=== PATIENT | female | born 1965 | race Caucasian/White ===

== ENCOUNTER 2016-11-07 15:27 | Inpatient (IN) ==
[2016-11-07] MEDS ORDERED: methylPREDNISolone SOD SUC 125 MG/2 ML VIAL IV STA (16:36)
[2016-11-07] MEDS ORDERED: FUROSEMIDE 100 MG/10 ML VIAL IV STA (16:36)
[2016-11-07] MEDS ORDERED: cefTRIAXone 1,000 MG in SODIUM CHLORIDE 0.9% 100 ML IV STA (16:36)
[2016-11-07] MEDS ORDERED: ONDANSETRON 4 MG/2 ML VIAL IV STA (16:36)
[2016-11-07] MEDS ORDERED: MORPHINE 2 MG/1 ML SYRINGE IV STA (16:36)
[2016-11-07] MEDS ORDERED: SODIUM CHLORIDE 0.9% 500 ML IV STA ×2 (16:36→21:31)
--- NOTE | 2016-11-07 16:50 | Emergency Department Note ---
Amaya Talley Mantricia, am scribing for, and in the presence of, Maxx Saravia MD 16:50. Manjit Talley Charles R, MD, personally performed the services described in this documentation, ascribed by Jason Conde in my presence, and it is both accurate and complete [id number] . Arrival - Arrival Chief Complaint: Shortness of Breath Stated Complaint: SOB/[facility] ED Nursing Triage Note: cough and congestion with diarrhea onset x 2 days - pt states that she has a nonproductive cough Mode of Arrival: Ambulatory Limitations: No Limitations Source: Patient Time Seen by Provider: 11/07/16 16:17 - History of Present Illness HPI Narrative: Pt is a 51 y/o white female arriving to ED by EMS with c/o pain while breathing that onset 2 days ago. Pt states that her back hurts when taking deep breaths and while coughing a lot. She also c/o diarrhea and states that she has a BM 2- 3 times a day. Pt states that she cannot breathe comfortably while laying down straight; she has to sit up to breathe normally. Pt admits to smoking. She reports no other complaints to ED. Onset (ago): day(s) Consistency: constant Date of Last Menstrual Period: timur Allergies/Adverse Reactions: Allergies Allergy/AdvReac Type Severity Reaction Status Date / Time aspirin Allergy HIVES Verified 11/07/16 15:32 Home Medications: Home Medications Medication Instructions Recorded Confirmed Type Levothyroxine Tab [Synthroid Tab] 100 mcg PO DAILY@0700 11/25/15 11/07/16 History Review of System - Review of System 12 point system: reviewed and no additional remarkable complaints except as stated - Review of System Constitutional: Absent: chills, diaphoresis, fever Eyes: Absent: discharge, pain Head/Ears/Nose/Throat: Absent: earache, epistaxis Respiratory: Absent: cough, respiratory distress, wheezing Cardiovascular: Present: other (pain while breathing). Absent: chest pain, palpitations Gastrointestinal: Absent: abdominal pain, nausea, vomiting, constipation Genitourinary female: Absent: abnormal menses, dysuria Musculoskeletal: Present: back pain. Absent: arm pain, leg pain, neck pain Skin: Absent: rash, lesions Neurological: Absent: headache Psychiatric: Absent: anxiety, depression Medical,Surgical,& Family Hx - Medical History Cardio: No history of: Hypertension Endocrine: History of: Thyroid Disorder No history of: Diabetes Mellitus (IDDM), Diabetes Mellitus (NIDDM) Respiratory: No history of: Asthma, COPD Renal: No history of: Renal Problems Genitourinary: No history of: Problems Gastrointestinal: No history of: Liver Problems, GI Problems - Social History Smoking Status: Current every day smoker Frequency of Alcohol Use: None Type of Drug Use: None Exam Vital Signs: Vital Signs Temperature 98.9 F 11/07/16 17:15 Pulse Rate 87 11/07/16 18:25 Respiratory Rate 20 11/07/16 18:25 Blood Pressure 167/107 11/07/16 17:15 O2 Sat by Pulse Oximetry 97 11/07/16 18:25 - General General appearance: alert, in no apparent distress, other (shaking disorder) - Head Head exam: Present: atraumatic, normocephalic, normal inspection - Eye Eye exam: Present: normal appearance, PERRL, EOMI - ENT ENT exam: Present: normal exam, normal oropharynx, mucous membranes moist, TM's normal bilaterally, normal external ear exam - Neck Neck exam: Present: normal inspection, full ROM, trachea midline. Absent: tenderness - Chest Chest inspection: Present: normal inspection, symmetric chest wall rise. Absent : tenderness - Respiratory Respiratory exam: Present: rales, rhonchi, wheezes (expiratory) - Cardiovascular Cardiovascular exam: Present: regular rate, normal rhythm, normal heart sounds - Abdominal Exam Abdominal exam: Present: soft, normal bowel sounds. Absent: distention, tenderness, guarding, rebound - Extremities Exam Extremities exam: Present: normal inspection, full ROM, tenderness, normal capillary refill, other (+1 LE edema) - Back Exam Back exam: Present: normal inspection, full ROM, tenderness - Neurological Exam Neurological exam: Present: alert, oriented X3, CN II-XII intact, normal gait, reflexes normal - Psychiatric Psychiatric exam: Present: normal affect, normal mood - Skin Skin exam: Present: warm, dry, intact, normal color Course - Reevaluation(s) Reevaluation #1: Patient reevaluated her oxygenation goes down take the oxygen off down to upper 80s. Patient's blood pressure today 154. Patient states she still short of breath patient has chest x-ray that shows evidence of interstitial inflammation and possibly sarcoidosis on x-ray Time: 20:29 - Consultations Consultation #1: Hospitalist will admit patient Time: 20:30 Results - Labs CBC & BMP: 11/07/16 17:09 11/07/16 17:09 Lab Results: I have reviewed the patients labs Labs: Laboratory Tests 11/07/16 17:20 ABG pH 7.455 H ABG HCO3 27.5 H ABG Total CO2 28.7 H ABG Base Excess 3.4 H - Diagnostic Findings Procedure: Chest x-ray: report reviewed by me (1. Chronic interstitial disease including sacroid could be considered. The pattern of interstitial stranding in the perihilar region suggests little progression from comparison. No acute superimposed process is clearly demonstrated. ) Critical Care Time Critical Care Time: Yes Total Critical Care Time: 60 Disposition Clinical Impression: Acute exacerbation of chronic obstructive airways disease, Tobacco abuse, Hypoxia Case discussed with: patient, patient's family Disposition: Still a Patient Condition: Guarded Time of Disposition: 20:30
[2016-11-07] MEDS ORDERED: ALBUTEROL 2.5 MG/3 ML NEB RESP TX SCH (17:00)
[2016-11-07 17:15] LABS: Basophils % 0.4 % (0.0-0.8); Eosinophils # 0.2 10*3/uL (0.0-0.87); Eosinophils % 1.8 % (0.00-10.9); Hemoglobin 13.6 GM/DL (12.0-16.0); Immature Granulocytes % 0.5 %; Immature Granulocytes Absolute 0.04 #; Lymphocytes # 2.1 10*3/uL (1.4-4.0); Lymphocytes % 24.9 % (21.3-54.2); Mean Corpuscular Hemoglobin 31 PG (27-34); Mean Corpuscular Volume 91.3 FL (87-102); Monocytes # 0.6 10*3/uL (0.11-0.8); Monocytes % 6.7 % (1.7-12.7); Neutrophils # 5.6 10*3/uL (1.4-7.4); Neutrophils % 65.7 % (38.7-73.9); Platelet Count 236 T/CUMM (130-400); Red Blood Count 4.38 MC/CUMM (3.8-5.5); Red Cell Distribution Width 13.7 % (9.3-17.3); White Blood Count 8.5 T/CUMM (4-12)
--- NOTE | 2016-11-07 17:24 | XRay Report ---
XR chest 2V Indication: Shortness of breath. Comparison: Chest x-ray 10/28/2012 Technique: PA and lateral chest x-ray was performed. Findings: Bilateral perihilar interstitial stranding is nonspecific in appearance and likely in part is chronic. Scattered punctate densities within the lung parenchyma compatible granulomas also remain present with little suggestive change. Partially calcified right hilar and left hilar lymph nodes are noted. The heart size is normal. Bones and soft tissues demonstrate no evidence of acute pathology. Impression: 1. Chronic interstitial disease including sarcoid could be considered. The pattern of interstitial stranding in the perihilar region suggests little progression from comparison. No acute superimposed process is clearly demonstrated. 11/07/2016 5:20 PM PROCEDURE INTERPRETED AT [facility] DEPARTMENT OF RADIOLOGY Final Report Signed by: Dr. Bradley Dougherty
[2016-11-07] MEDS ORDERED: cefTRIAXone 1,000 MG VIAL ONE (17:32)
[2016-11-07] MEDS ORDERED: methylPREDNISolone SOD SUC 125 MG/2 ML VIAL ONE (17:32)
[2016-11-07] MEDS ORDERED: MORPHINE 2 MG/1 ML SYRINGE ONE (17:32)
[2016-11-07] MEDS ORDERED: ONDANSETRON 4 MG/2 ML VIAL ONE (17:32)
[2016-11-07] MEDS ORDERED: FUROSEMIDE 40 MG/4 ML VIAL ONE (17:32)
[2016-11-07 17:34] LABS: ABG Base Excess 3.4 MMOL/L (-2.5-2.5); ABG HCO3 27.5 MMOL/L (20-26); ABG PH 7.455 (7.35-7.45); ABG PO2 88.1 MM HG (80-95); ABG TCO2 28.7 MMOL/L (23-27)
[2016-11-07 17:35] LABS: D-Dimer <= 0.5 MG/L FEU; INR 1.1; PT Patient Result 11.4 SECS
[2016-11-07 17:37] LABS: Alanine Aminotransferase 15 U/L (13-56); Albumin 3.3 G/DL (3.4-5.0); Alkaline Phosphatase 90 U/L (45-117); Aspartate Amino Transferase 14 U/L (0-37); Bilirubin,Total < 0.39 MG/DL (0.2-1.0); Blood Urea Nitrogen 13 MG/DL (7-18); Calcium 8.5 MG/DL (8.5-10.1); Glucose 88 MG/DL (74-106); Magnesium 2.1 MG/DL (1.8-2.4); Osmolality,Calculated 281.1 MOS/KG (273-304); Potassium 4.3 MMOL/L (3.5-5.1); Sodium 142 MMOL/L (136-145); Total Protein 6.8 G/DL (6.4-8.3); Troponin I Only 0.028 NG/ML (0.00-0.045)
[2016-11-07] MEDS ORDERED: ONDANSETRON 4 MG/2 ML VIAL IV PRN (21:17)
[2016-11-07] MEDS ORDERED: ALBUTEROL 2.5 MG/3 ML NEB RESP TX PRN (21:31)
--- NOTE | 2016-11-07 21:43 | Hospitalist History & Physical ---
Assessment and Plan (1) History of hypothyroidism Status: Acute Current Visit: Yes (2) Acute exacerbation of chronic obstructive airways disease Status: Acute Current Visit: Yes (3) Hypoxia Status: Acute Current Visit: Yes (4) Tobacco abuse Status: Acute Assessment and plan: Our plan for this patient will be admission to our service. Patient will be on schedule breathing treatments and IV antibiotics. Will do some steroids also. I would like pulmonary to take a look at her and to determine whether she has sarcoid or not. Patient's O2 sats would drop when she was taken off oxygen in the emergency room. We will need to reevaluate patient in the morning and adjust plans appropriate. Current Visit: Yes History of Present Illness Chief complaint: Shortness of breath History of present illness: Ms. Zamorano is a 51 year old female with past medical history significant for hypothyroidism presents to our ER today. She reports that she has not been feeling well. She felt short of breath. She thinks that her symptoms have been going on approximately 1 week. She reports sleeping more. She reports a cough. She reports that she has sputum that is clear and foamy. She came in complaining about some diarrhea but reports it is not too bad. Patient's chest x-ray looks like a chronic illness possibly sarcoid. Patient's O2 sats would drop when she was off the oxygen but she was able to maintain oxygen while on O2. I was consulted for admission Home Medications Medication Instructions Recorded Confirmed Type Levothyroxine Tab [Synthroid Tab] 100 mcg PO DAILY@0700 11/25/15 11/07/16 History Allergies Allergy/AdvReac Type Severity Reaction Status Date / Time aspirin Allergy HIVES Verified 11/07/16 15:32 Medical,Surgical,& Family Hx - Medical History Cardio: No history of: Hypertension Endocrine: History of: Thyroid Disorder No history of: Diabetes Mellitus (IDDM), Diabetes Mellitus (NIDDM) Respiratory: No history of: Asthma, COPD Renal: No history of: Renal Problems Genitourinary: No history of: Problems Gastrointestinal: No history of: Liver Problems, GI Problems - Surgical History Orthopedic Surgeries: Surgical HX of;: Orthopedic Surgery (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) - Family History Family History: Reports;: Family Cancer, Family Diabetes, Family Heart Disease - Social History Smoking Status: Current every day smoker Frequency of Alcohol Use: None Type of Drug Use: None 12 point system: reviewed and no additional remarkable complaints except as stated Exam - Constitutional Vitals: Period Temp Pulse Resp BP Sys/Donaldson Pulse Ox Last 24 Hr 98.9 F-98.9 F 81-115 19-22 167-167/107-107 89-97 - General General appearance: alert, in no apparent distress, other (shaking disorder) - Head Head exam: Present: atraumatic, normocephalic, normal inspection - Eye Eye exam: Present: normal appearance, PERRL, EOMI - ENT ENT exam: Present: normal exam, normal oropharynx, mucous membranes moist, TM's normal bilaterally, normal external ear exam - Neck Neck exam: Present: normal inspection, full ROM, trachea midline. Absent: tenderness - Chest Chest inspection: Present: normal inspection, symmetric chest wall rise. Absent : tenderness - Respiratory Respiratory exam: Present: rales, rhonchi, wheezes (expiratory) per ER physician but have improved when I examined her - Cardiovascular Cardiovascular exam: Present: regular rate, normal rhythm, normal heart sounds - Abdominal Exam Abdominal exam: Present: soft, normal bowel sounds. Absent: distention, tenderness, guarding, rebound - Extremities Exam Extremities exam: Present: normal inspection, full ROM, tenderness, normal capillary refill, other (+1 LE edema) patient has child-size feet - Back Exam Back exam: Present: normal inspection, full ROM, tenderness - Neurological Exam Neurological exam: Present: alert, oriented X3, CN II-XII intact, normal gait, reflexes normal - Psychiatric Psychiatric exam: Present: normal affect, normal mood - Skin Skin exam: Present: warm, dry, intact, normal color Results - Labs CBC & BMP: 11/07/16 17:09 11/07/16 17:09
[2016-11-08] MEDS: ALBUTEROL/IPRATROPIUM 3 ML NEB RESP TX SCH ×4 (00:10→19:25)
[2016-11-08 06:47] LABS: Basophils % 0.1 % (0.0-0.8); Hematocrit 37.9 VOL% (35.7-47.0); Hemoglobin 12.5 GM/DL (12.0-16.0); Immature Granulocytes % 1.8 %; Immature Granulocytes Absolute 0.17 #; Lymphocytes # 0.5 10*3/uL (1.4-4.0); Lymphocytes % 4.9 % (21.3-54.2); Mean Corpuscular Hemoglobin 30 PG (27-34); Mean Platelet Volume 11.6 FL (9.6-12.0); Monocytes # 0.1 10*3/uL (0.11-0.8); Monocytes % 0.6 % (1.7-12.7); Neutrophils # 8.7 10*3/uL (1.4-7.4); Neutrophils % 92.6 % (38.7-73.9); Platelet Count 210 T/CUMM (130-400); Red Blood Count 4.12 MC/CUMM (3.8-5.5); Red Cell Distribution Width 13.8 % (9.3-17.3); White Blood Count 9.4 T/CUMM (4-12)
[2016-11-08 07:24] LABS: Segmented Neutrophils 94 % (50-85)
[2016-11-08 07:25] LABS: Hypochromasia 3+; Microcytosis Slight; Platelet Estimate Normal; Total Cells Counted 100
[2016-11-08 07:28] LABS: Alanine Aminotransferase 13 U/L (13-56); Alkaline Phosphatase 88 U/L (45-117); Aspartate Amino Transferase 11 U/L (0-37); Calcium 8.1 MG/DL (8.5-10.1)
[2016-11-08 07:30] LABS: Blood Urea Nitrogen 20 MG/DL (7-18); Glucose 329 MG/DL (74-106); Osmolality,Calculated 292.5 MOS/KG (273-304); Potassium 3.5 MMOL/L (3.5-5.1); Sodium 139 MMOL/L (136-145)
[2016-11-08 07:31] LABS: Bilirubin,Total < 0.39 MG/DL (0.2-1.0); Total Protein 6.7 G/DL (6.4-8.3)
--- NOTE | 2016-11-08 07:53 | EKG Report ---
Stationary ECG Study [facility] ER Test Date: 11/07/2016 3:39:36 PM Pat Name: DAVID BENNETT Department: Room: 432 Gender: F Mainframe Analyst: : 1965 Requested by: Maxx Reina Order Number: [id number] Reading MD: BRANDO MERCHANT Intervals [place] Rate: 67 P: 58 [place]: 125 QRS: 77 QRSD: 81 T: 65 QT: 400 QTc: 416 Interpretive Statements SINUS RHYTHM Electronically Signed On 11-09-16 22:13:39 CDT by BRANDO MERCHANT [email or web address]
[2016-11-08] MEDS: PANTOPRAZOLE 40 MG TABLET PO SCH (09:02)
[2016-11-08] MEDS: methylPREDNISolone SOD SUC 40 MG/1 ML VIAL IV SCH ×3 (09:16→17:09)
[2016-11-08] MEDS: LEVOTHYROXINE 100 MCG TABLET PO SCH (09:17)
[2016-11-08] MEDS ORDERED: GLUCAGON 1 MG VIAL IM PRN (10:19)
[2016-11-08] MEDS ORDERED: DEXTROSE 50% 25 GM/50 ML VIAL IV PRN (10:19)
[2016-11-08] MEDS ORDERED: AMINOPHYLLINE 250 MG in SODIUM CHLORIDE 0.9% 100 ML IV ONE (10:30)
[2016-11-08 11:09] LABS: Free T4 (Free Thyroxine) 0.95 NG/DL (0.76-1.46); Thyroid Stimulating Hormone 6.55 uIU/ml (0.358-3.74)
--- NOTE | 2016-11-08 11:43 | Physician Query Form ---
CLICK EDIT DOCUMENT TO SELECT QUERY ANSWER --> OK --> SIGN Megha Soto RN Clinical Sequencing Machine Operator W) [phone] (f) [phone] [email or web address] PROVIDERS: Make your selection(s) from the choices in EACH section by typing an "x" and enter comments in the comment section. Please use your independent medical judgment in providing your response. This request does not imply that any particular answer is desired or expected. CLINICAL INDICATORS: (Providers should not edit this section) \\ Based on lab results of creatinine of 0.90 on admission and increased to 1.86 with a GFR of 24. Pt. treated with IV fluids. Clarify which of the following most accurately represents the patient's renal status: ( x) Acute kidney injury (non-traumatic) ( ) Acute renal failure ( ) Acute renal failure with underlying Chronic Kidney Disease (CKD) - please provide stage below ( ) CKD - please provide stage below ( ) Other, please specify: ( ) Clinically unable to determine Chronic Kidney Disease Stages Source: National Kidney Disease Foundation ( ) Stage I (eGFR > or = 90) ( ) Stage II (eGFR 60 - 89) ( x) Stage III (eGFR 30 - 59) ( ) Stage IV (eGFR 15 - 29) ( ) Stage V (eGFR < 15 or dialysis) COMMENTS: PLEASE ALSO DOCUMENT RESPONSE IN PROGRESS NOTES AND/OR DISCHARGE SUMMARY Use of terms such as suspected, likely, or probable (associated with a specific diagnosis that is being evaluated, monitored, or treated as if it exists) are acceptable and can be restated in the discharge summary if not ruled out. MTDD
--- NOTE | 2016-11-08 12:19 | Pulmonology Consult Note ---
History of Present Illness Chief complaint: Abnormal CXR. COPD. Tobacco abuse. History of present illness: Estuardo Stevenson, ANP-BC, GNP-BC, acting as scribe for Dr. Fran Camargo Ms. Zamorano is a 51 year old white female who we've been asked to see in pulmonary consultation for evaluation and treatment. The request for consultation was made by Dr. Andrade. The patient presented to [place] ER on 11/07/16 with complaints of increased shortness of breath. She has a long history of tobacco abuse. She was hypoxic on ABGs. CXR showed possible evidence of sarcoidosis. She was felt to be in an acute exacerbation of COPD and was admitted for further evaluation and care. She was seen today along with her nurse. She is a fair historian. She denies a history of previous pulmonary or cardiac problems. She reports increased shortness of breath and some BRYSON. She denies cardiac angina or palpitations. She denies reflux or dypshagia. There has been no bleeding from any site. No change in bowel or bladder habits. No TIA symptoms or syncope. All other systems were reviewed and were negative. Allergies: ASA Home medications: [facility] medications: See list Past medical history: Hypothyroidism. History of scabies. 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 Social history: She is a current smoker. She denies the use of alcohol. She recently began working at [employer]. CXR. Done 11/07/16. My interpretation. There is calcification in the hilum. The lymph nodes are upper size of normal. There is a small peritracheal lymph node present. There are slightly increased interstitial markings at the bases. There is no appearance of active sarcoidosis. Laboratory: White count is 9,400 with 92.6% segs, 4.9% lymphs, and 0.6% monos; H &H 12.5/37.9 with normal indices and normal RDW; PLT count 210,000; creatinine has increased from 0.90 at admission to 1.86 today, BUN 20, NA+ 139, K+ 3.5, Mg + 2.1; LFTs WNL; Ca+ is low at 8.1 reflecting a low BUN of 3.0, total protein 6.7; globulins 3.7; BNP 17; troponin 0.028; INR 1.0; d-dimer is less than or equal to 0.5 ABGs done 11/07/2016 on an FiO2 of 28% showed a pH of 7.455, PCO2 40.0, PO2 88.1 , bicarb 27.5, and oxygen saturation 97.0%. Home Medications Medication Instructions Recorded Confirmed Type Levothyroxine Tab [Synthroid Tab] 100 mcg PO DAILY@0700 11/25/15 11/07/16 History Allergies Allergy/AdvReac Type Severity Reaction Status Date / Time aspirin Allergy HIVES Verified 11/07/16 15:32 Exam (Pulmonay) H&P - Constitutional Vitals: Period Temp Pulse Resp BP Sys/Donaldson Pulse Ox Last 24 Hr 97.8 F-98.9 F 61-115 18-22 85-167/51-107 89-99 Exam: Psych: [Oriented x 3; a pleasant and cooperative patient; somewhat slow to answer questions but answers appropriately] HEENT: [Pupils, irises, sclera, conjunctiva, and eyelids are normal. The face is symmetrical without rash or masses. Lips, tongue, buccal mucosa, soft and hard palates, and pharynx are WNL with the exception of dry mucous membranes.] Neck: [Symmetrical. Thyroid was not palpated.] Lymphatics: [No submandibular, cervical, or supraclavicular adenopathy] Chest: Symmetrical with large airway wheeze and faint end expiratory wheeze Breasts: [Deferred] CV: [Regular with a short grade 1/6 systolic ejection murmur at the left sternal border that does not radiate] Arterial: [Carotids with a good upstroke. There is no bruit. Upper extremity pulses are palpable. Lower extremity pulses are non-palpable, but I see no evidence of ischemia.] Venous: [Exam of the neck, upper, and lower extremities is normal] Abd: [No appreciable organomegaly, masses, tenderness, or bruit; Bowel sounds are positive 4; The aorta was not palpated] /Rectal: [Deferred] Extremities: [No clubbing, cyanosis, edema, or obvious DVT; there is tenderness with palpation of the bilateral calves] Skin: [No cancerous or infectious lesions of the exposed, examined skin; the perineal area was not examined] M/S: [Age appropriate loss of the normal curvature of the cervical, thoracic, and lumbar spine] Neurological: [Cranial nerves are intact with possibly some mild decreased hearing acuity bilaterally, Long tract motor function appears to be intact; Sensory exam was not done; gait was not tested.] The remainder of the exam was noncontributory. Impression: #1: COPD/asthma #2: Acute exacerbation of COPD #3: Acute renal failure #4: Tobacco abuse #5: Hypoxemia #6: Abnormal chest x-ray. Note, there is no appearance of active sarcoidosis. #7: Hypothyroidism #8: History of scabies #9: Hypocalcemia #10: See past history Plan: #1: Agree with protocol antibiotics and Solu-Medrol #2: Agree with inhalation therapy #3: Start IV Aminophyllin. Will begin with a 250 mg bolus over 4 hours and then run at 15 mg/h. Daily theophylline level starting tomorrow. #4: Start Singulair 10 mg daily. Start Mucinex 600 mg twice daily. #5: Check Doppler venograms to rule out deep venous thrombophlebitis in the setting of calf pain and hypoxemia #6: Check angiotensin-converting enzyme and sed rate. Note, there is no evidence of active sarcoidosis on chest x-ray but will obtain these tests for confirmation. #7: Sliding scale insulin #8: Check hemoglobin A1c #9: Urinalysis #10: Vitamin D level #11: Check TSH and free T4 #12: Sputum for Gram stain, culture and sensitivity #13: See orders We appreciate this consult and will follow along with you. Medical,Surgical,& Family Hx - Medical History Cardio: No history of: Hypertension Endocrine: History of: Thyroid Disorder No history of: Diabetes Mellitus (IDDM), Diabetes Mellitus (NIDDM) Respiratory: No history of: Asthma, COPD Renal: No history of: Renal Problems Genitourinary: No history of: Problems Gastrointestinal: No history of: Liver Problems, GI Problems - Surgical History Abdominal Surgeries: Patient denies: Abdominal Surgery Reproductive Surgeries: Patient denies;: Genitourinary Surgery, Gynecologic Surgery Orthopedic Surgeries: Surgical HX of;: Orthopedic Surgery (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
[2016-11-08] MEDS: INSULIN REGULAR 100 UNIT/ML SUBCUT SCH ×2 (13:09→17:12)
[2016-11-08] MEDS: MONTELUKAST 10 MG TABLET PO SCH (13:09)
--- NOTE | 2016-11-08 14:06 | Ultrasound Report ---
History: Shortness of breath. Hypoxemia. Leg pain Date: 11/08/2016 Study: Bilateral lower extremity color-flow venous Doppler study Comparison exam: No previous similar Color Doppler, wave form analysis, and compression analysis of the deep veins of both lower extremities from the common femoral vein level through the popliteal vein level shows that the veins are readily compressible. There is no abnormal intraluminal material to suggest thrombus. Waveform analysis is unremarkable. Ultrasound images were captured and archived Impression: Normal bilateral lower extremity color flow venous Doppler study. No evidence of acute DVT PROCEDURE INTERPRETED AT [facility] DEPARTMENT OF RADIOLOGY Final Report Signed by: Dr. Elizabeth Cortez
[2016-11-08] MEDS ORDERED: AMINOPHYLLINE 500 MG in SODIUM CHLORIDE 0.9% 480 ML IV SCH (14:30)
--- NOTE | 2016-11-08 16:25 | Hospitalist Progress Note ---
Assessment and Plan (1) Respiratory failure with hypoxia Status: Acute Assessment and plan: Patient is doing better now with a oxygenation. Aggressive respiratory treatments and respiratory toiletry has of been afforded. She also been put on antibiotics though we will try to broaden this coverage with addition of azithromycin 500 mg IV once a day Current Visit: Yes (2) Respiratory distress Status: Acute Assessment and plan: Resolved Current Visit: Yes (3) Lower respiratory infection Status: Acute Assessment and plan: Antibiotic orders above. This is possibly bronchiolitis. Current Visit: Yes (4) Acute exacerbation of chronic obstructive airways disease Status: Acute Assessment and plan: Secondary to rule out history infection. Patient has no aggressive beta agonist ipratropium bromide and systemic steroids. We will follow sputum cultures. Current Visit: Yes Hospitalist: Subjective Interval history: Patient has been seen interviewed and examined chart has been reviewed. She acknowledges getting better with her breathing. This patient came in the hospital respiratory distress acute hypoxic respiratory failure with a pulse oximetry was around 89% Exam - Constitutional Vitals: Period Temp Pulse Resp BP Sys/Donaldson Pulse Ox Last 24 Hr 96.1 F-98.9 F 61-115 18-22 85-167/51-107 90-99 General appearance: normal weight - Head Head exam: Present: normocephalic - Eye Eye exam: Present: EOMI Pupils: Present: IRENE - ENT ENT exam: Present: normal exam - Neck Neck exam: Present: normal inspection - Respiratory Respiratory exam: Present: clear to auscultation bilaterally, other (There is no wheezing at this point mild rales at the bases admixed with some crackles) - Cardiovascular Cardiovascular exam: Present: regular rate and rhythm - GI/Abdominal GI/Abdominal exam: Present: normal bowel sounds, soft - Extremities Exam Extremities exam: Present: other (Tremulous but with normal range of motion) - Back Exam Back exam: Present: normal inspection - Neurological Exam Neurological exam: Present: alert, oriented X3, CN II-XII intact, other ( 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 He has refused neurology evaluation in the past, I am informed.) - Psychiatric Psychiatric exam: Present: normal affect, normal mood - Skin Skin exam: Present: normal color, warm, dry Results - Labs CBC & BMP: 11/08/16 04:00 05/25/17 04:00 Lab Results: I have reviewed the past 24 hour labs
[2016-11-08] MEDS: AZITHROMYCIN INJ 500 MG in SODIUM CHLORIDE 0.9% 250 ML IV SCH (17:52)
[2016-11-08 17:56] LABS: Apearance,Urine CLEAR (Clear); Bilirubin,Urine Negative (Negative); Blood, Urine Negative (Negative); Glucose,Urine (UA) 150 mg/dL (Negative); Hyaline Casts,Urine 1 /LPF (0-3); Ketones,Urine Negative (Negative); Mucus,Urine Occasional /LPF (Occasional); Nitrite,Urine Negative (Negative); Protein,Urine Negative; RBC,Urine 1 /HPF (0-4); Squamous Epithelial Cell,Urine Occasional /HPF (0-10); Urine Color Yellow (Yellow); Urine Specific Gravity 1.012 (1.001-1.035); Urine Urobilinogen < 2.0 EU/DL (0.2-1.0); WBC,Urine 1 /HPF (0-6)
[2016-11-08] MEDS: ACETAMINOPHEN 325 MG TABLET PO PRN (21:59)
[2016-11-09] MEDS: ALBUTEROL/IPRATROPIUM 3 ML NEB RESP TX SCH ×4 (00:40→19:41)
[2016-11-09] MEDS: methylPREDNISolone SOD SUC 40 MG/1 ML VIAL IV SCH ×3 (01:08→17:19)
[2016-11-09] MEDS: INSULIN REGULAR 100 UNIT/ML SUBCUT SCH ×5 (01:12→21:32)
[2016-11-09] MEDS: cefTRIAXone 1,000 MG in SODIUM CHLORIDE 0.9% 100 ML IV SCH ×3 (04:07→20:11)
[2016-11-09] MEDS: LEVOTHYROXINE 100 MCG TABLET PO SCH (06:11)
--- NOTE | 2016-11-09 08:47 | Hospitalist Progress Note ---
Assessment and Plan (1) Respiratory failure with hypoxia Status: Acute Assessment and plan: Patient is doing better now with oxygenation. Aggressive respiratory treatments and respiratory toiletry has of been afforded. She also been put on antibiotics though we will try to broaden this coverage with addition of azithromycin 500 mg IV once a day. Current Visit: Yes (2) Respiratory distress Status: Acute Assessment and plan: Resolved Current Visit: Yes (3) Lower respiratory infection Status: Acute Assessment and plan: Antibiotic orders above. This is possibly bronchiolitis. Current Visit: Yes (4) Acute exacerbation of chronic obstructive airways disease Status: Acute Assessment and plan: Secondary to rule out history infection. Patient has no aggressive beta agonist ipratropium bromide and systemic steroids. We will follow sputum cultures. COPD is not acknowledged by the patient therefore is anuric diagnosis. She will need PFTs. Will await comment from pulmonology Current Visit: Yes Hospitalist: Subjective Interval history: Patient has been seen interviewed and examined and chart has been reviewed. Been progressive improvement in her breathing status. To the hospital With a diagnosis of exacerbation of COPD but she does not acknowledge having had a diagnosis of COPD before. Her attests to these. We do have a pulmonology on the case probably needs to have pulmonary function tests at one point. No history of asthma preceding this admission. She does have a long history of smoking. Was quite hypoxic at admission with pulse oximetry of 89%. Exam - Constitutional Vitals: Period Temp Pulse Resp BP Sys/Donaldson Pulse Ox Last 24 Hr 96.3 F-99.8 F 61-86 16-20 104-128/55-65 90-99 General appearance: normal weight, no acute distress - Head Head exam: Present: normal inspection, normocephalic, atraumatic - Eye Eye exam: Present: EOMI Pupils: Present: IRENE - ENT ENT exam: Present: normal exam - Neck Neck exam: Present: normal inspection - Respiratory Respiratory exam: Present: clear to auscultation bilaterally - Cardiovascular Cardiovascular exam: Present: regular rate and rhythm - GI/Abdominal GI/Abdominal exam: Present: normal bowel sounds, soft - Extremities Exam Extremities exam: Present: full ROM - Neurological Exam Neurological exam: Present: alert, oriented X3, CN II-XII intact - Psychiatric Psychiatric exam: Present: normal affect, normal mood - Skin Skin exam: Present: normal color, warm, dry, other (She has a small lipoma in the right flank) Results - Labs CBC & BMP: 11/08/16 04:00 11/08/16 04:00 Lab Results: I have reviewed the past 24 hour labs (Morning labs to include BMP with magnesium and CBC with differential)
--- NOTE | 2016-11-09 09:44 | Pulmonology Progress Note ---
Pulmonary - PN: Subj Interval history: Estuardo Stevenson, ANP-BC, GNP-BC, acting as scribe for Dr. Fran Camargo Mrs. Zamorano is a 51-year-old white female who we saw in initial pulmonary consultation on 11/08/2016. At that time, our impressions were: #1: COPD/asthma #2: Acute exacerbation of COPD #3: Acute renal failure #4: Tobacco abuse #5: Hypoxemia #6: Abnormal chest x-ray. Note, there is no appearance of active sarcoidosis. #7: Hypothyroidism #8: History of scabies #9: Hypocalcemia #10: See past history 11/09/2016. Yesterday the patient was started on IV Aminophyllin and Singulair. Today she reports that she is able to take a better deeper breath. On chest exam, her large airway wheeze and high-pitched peripheral wheezes have markedly improved. Her consultation secondary to abnormal chest x-ray. There is a question of whether or not this patient had sarcoidosis. There is no evidence of active sarcoid on chest x-ray, certainly. Angiotensin-converting enzyme is pending. Vitamin D is insufficient at 25.8. Theophylline level is 3.6. Sed rate is 37. Hemoglobin A1c is 6.1%. TSH is elevated at 6.550, but free T4 is normal at 0.95. Medications have been reviewed. Start vitamin D 2000 international units daily. Given her improvement since yesterday, we will convert her IV Aminophyllin to oral theophylline. Labs have been reviewed. Yesterday's magnesium was low at 1.6 (hypomagnesemia) and her creatinine had risen from 0.902 to 1.86. We we will reorder a BMP and magnesium for today. Exam (Progress Note) - Constitutional Vitals: Period Temp Pulse Resp BP Sys/Donaldson Pulse Ox Last 24 Hr 96.3 F-99.8 F 61-86 16-20 104-128/55-65 90-99 Exam: Chest... See above Heart no gallop Abdomen is nontender and nondistended; bowel sounds are positive 4 Lower extremities with nothing to suggest acute deep venous thrombophlebitis; note, Doppler venograms done 11/08/2016 showed no evidence of acute DVT Psychiatric presently oriented 3 Neurologic... Unchanged Plan: Start vitamin D 2000 international units daily. Start theophylline 300 mg p.o. twice daily. Aminophyllin can be discontinued when the first dose of oral theophylline is given. Follow-up angiotensin-converting enzyme level when available. BMP and magnesium today. Labs are ordered for tomorrow. See orders. Results - Labs CBC & BMP: 11/08/16 04:00 11/08/16 04:00
[2016-11-09] MEDS: CHOLECALCIFEROL 1,000 UNIT TABLET PO SCH (10:03)
[2016-11-09] MEDS: MONTELUKAST 10 MG TABLET PO SCH (10:04)
[2016-11-09] MEDS: PANTOPRAZOLE 40 MG TABLET PO SCH (10:04)
[2016-11-09 10:12] LABS: Calcium 8.2 MG/DL (8.5-10.1); Magnesium 1.9 MG/DL (1.8-2.4); Osmolality,Calculated 290.7 MOS/KG (273-304)
--- NOTE | 2016-11-09 10:51 | Hospitalist Progress Note ---
Assessment and Plan (1) Respiratory failure with hypoxia Status: Acute Assessment and plan: Patient is doing better now with oxygenation. Aggressive respiratory treatments and respiratory toiletry has of been afforded. She also been put on antibiotics though we will try to broaden this coverage with addition of azithromycin 500 mg IV once a day. Current Visit: Yes (2) Respiratory distress Status: Acute Assessment and plan: Resolved Current Visit: Yes (3) Lower respiratory infection Status: Acute Assessment and plan: Antibiotic orders above. This is possibly bronchiolitis. Current Visit: Yes (4) Acute exacerbation of chronic obstructive airways disease Status: Acute Assessment and plan: Secondary to rule out history infection. Patient has no aggressive beta agonist ipratropium bromide and systemic steroids. We will follow sputum cultures. COPD is not acknowledged by the patient therefore is anuric diagnosis. She will need PFTs. Will await comment from pulmonology Current Visit: Yes Hospitalist: Subjective Interval history: First encounter this patient. Ms. Zamorano is a 51-year-old lady admitted overnight with a history of COPD presented with respiratory distress thought to have bronchitis and pneumonia right lower lobe. She is acknowledging a cough without expectoration. Patient was started on levofloxacin at admission. No respiratory distress at this time Exam - Constitutional Vitals: Period Temp Pulse Resp BP Sys/Donaldson Pulse Ox Last 24 Hr 96.3 F-99.8 F 61-86 16-20 104-129/55-79 90-99 General appearance: normal weight - Head Head exam: Present: normal inspection - Eye Eye exam: Present: EOMI Pupils: Present: IRENE - ENT ENT exam: Present: normal exam, normal oropharynx - Neck Neck exam: Present: normal inspection, other (Supple neck no thyromegaly no JVD) - Respiratory Respiratory exam: Present: clear to auscultation bilaterally, other (I do not acknowledge bronchophony) - Cardiovascular Cardiovascular exam: Present: irregular rhythm, other (Since patient's EKG shows sinus control with PVCs but his variant duration of OK interval suggesting possibility of Wenckebach) - GI/Abdominal GI/Abdominal exam: Present: normal bowel sounds - Extremities Exam Extremities exam: Present: normal inspection - Back Exam Back exam: Present: normal inspection - Neurological Exam Neurological exam: Present: alert, oriented X3, CN II-XII intact Results - Labs CBC & BMP: 11/08/16 04:00 11/09/16 03:36
[2016-11-09] MEDS: THEOPHYLLINE ER 300 MG TABLET PO SCH (17:19)
[2016-11-09] MEDS: AZITHROMYCIN INJ 500 MG in SODIUM CHLORIDE 0.9% 250 ML IV SCH (17:21)
[2016-11-09] MEDS: ACETAMINOPHEN 325 MG TABLET PO PRN (20:11)
[2016-11-10] MEDS: ALBUTEROL/IPRATROPIUM 3 ML NEB RESP TX SCH ×4 (01:02→19:56)
[2016-11-10] MEDS: methylPREDNISolone SOD SUC 40 MG/1 ML VIAL IV SCH ×3 (01:32→15:48)
[2016-11-10 05:05] LABS: Basophils % 0.2 % (0.0-0.8); Hematocrit 34.6 VOL% (35.7-47.0); Hemoglobin 11.4 GM/DL (12.0-16.0); Immature Granulocytes % 1.6 %; Lymphocytes # 0.6 10*3/uL (1.4-4.0); Lymphocytes % 2.4 % (21.3-54.2); Mean Corpuscular HGB Conc 32.9 GM/DL (32-36); Mean Corpuscular Hemoglobin 30 PG (27-34); Mean Corpuscular Volume 92.3 FL (87-102); Monocytes # 0.4 10*3/uL (0.11-0.8); Monocytes % 1.8 % (1.7-12.7); Neutrophils # 22.9 10*3/uL (1.4-7.4); Platelet Count 212 T/CUMM (130-400); Red Blood Count 3.75 MC/CUMM (3.8-5.5); Red Cell Distribution Width 14.3 % (9.3-17.3); White Blood Count 24.3 T/CUMM (4-12)
[2016-11-10 05:31] LABS: Calcium 8.1 MG/DL (8.5-10.1); Osmolality,Calculated 285.1 MOS/KG (273-304)
[2016-11-10 06:06] LABS: Hypochromasia 1+; Lymphocytes 4 % (20-55); Segmented Neutrophils 95 % (50-85); Total Cells Counted 100
[2016-11-10 06:07] LABS: Microcytosis 1+; Ovalocytes Few; Platelet Estimate Normal
[2016-11-10] MEDS: LEVOTHYROXINE 100 MCG TABLET PO SCH (06:20)
[2016-11-10] MEDS: MONTELUKAST 10 MG TABLET PO SCH (08:28)
[2016-11-10] MEDS: CHOLECALCIFEROL 1,000 UNIT TABLET PO SCH (08:28)
[2016-11-10] MEDS: PANTOPRAZOLE 40 MG TABLET PO SCH (08:28)
[2016-11-10] MEDS: THEOPHYLLINE ER 300 MG TABLET PO SCH ×2 (08:28→18:30)
[2016-11-10] MEDS: INSULIN REGULAR 100 UNIT/ML SUBCUT SCH ×4 (08:35→21:08)
--- NOTE | 2016-11-10 10:46 | Pulmonology Progress Note ---
Pulmonary - PN: Subj Interval history: Patient being treated for COPD exacerbation, clinically improving. Still having some cough and exertional dyspnea but feels like she's improving overall Exam (Progress Note) - Constitutional Vitals: Period Temp Pulse Resp BP Sys/Donaldson Pulse Ox Last 24 Hr 97.3 F-99 F 71-94 15-22 108-128/56-80 93-99 General appearance: normal weight, no acute distress - Head Head exam: Present: normal inspection - Eye Eye exam: Present: EOMI - ENT ENT exam: Present: normal exam - Neck Neck exam: Present: normal inspection - Respiratory Respiratory exam: Present: clear to auscultation bilaterally - Cardiovascular Cardiovascular exam: Present: regular rate and rhythm - GI/Abdominal GI/Abdominal exam: Present: normal bowel sounds - Skin Skin exam: Present: other (small lipoma on right abdomen, nontender, mobile) Results - Labs CBC & BMP: 11/10/16 03:54 11/10/16 03:54 Lab Results: I have reviewed the past 24 hour labs Assessment and Plan (1) Acute exacerbation of chronic obstructive airways disease Status: Acute Assessment and plan: Patient clinically improving. Leukocytosis likely from steroids, but would follow to ensure this stabilizes. Continue with current meds. Will continue to follow along Current Visit: Yes
[2016-11-11] MEDS: ALBUTEROL/IPRATROPIUM 3 ML NEB RESP TX SCH ×4 (01:10→19:20)
[2016-11-11 05:20] LABS: Basophils % 0.2 % (0.0-0.8); Hematocrit 35.2 VOL% (35.7-47.0); Hemoglobin 11.6 GM/DL (12.0-16.0); Immature Granulocytes % 2.6 %; Immature Granulocytes Absolute 0.43 #; Lymphocytes % 11.8 % (21.3-54.2); Mean Corpuscular Hemoglobin 30 PG (27-34); Mean Corpuscular Volume 91.7 FL (87-102); Mean Platelet Volume 12.2 FL (9.6-12.0); Monocytes % 6.2 % (1.7-12.7); Neutrophils # 13.3 10*3/uL (1.4-7.4); Neutrophils % 79.2 % (38.7-73.9); Platelet Count 218 T/CUMM (130-400); Red Blood Count 3.84 MC/CUMM (3.8-5.5); Red Cell Distribution Width 14.5 % (9.3-17.3); White Blood Count 16.7 T/CUMM (4-12)
[2016-11-11] MEDS: LEVOTHYROXINE 100 MCG TABLET PO SCH (06:41)
[2016-11-11] MEDS: AZITHROMYCIN INJ 500 MG in SODIUM CHLORIDE 0.9% 250 ML IV SCH (07:25)
[2016-11-11] MEDS: INSULIN REGULAR 100 UNIT/ML SUBCUT SCH ×4 (07:33→20:16)
--- NOTE | 2016-11-11 08:53 | Hospitalist Progress Note ---
Assessment and Plan (1) Acute exacerbation of chronic obstructive airways disease Status: Acute Current Visit: Yes (2) Tobacco abuse Status: Acute Current Visit: Yes (3) Respiratory distress Status: Acute Current Visit: Yes Hospitalist: Subjective Interval history: No acute events overnight. Patient feels better today. Has been walking around the hospital. Changed her prednisone and abx to po. Exam - Constitutional Vitals: Period Temp Pulse Resp BP Sys/Donaldson Pulse Ox Last 24 Hr 96.4 F-99.1 F 58-97 16-20 105-138/55-69 93-99 General appearance: normal weight - Head Head exam: Present: normocephalic, atraumatic - Eye Eye exam: Present: EOMI Pupils: Present: IRENE - ENT ENT exam: Present: normal exam - Respiratory Respiratory exam: Present: wheezes - Cardiovascular Cardiovascular exam: Present: regular rate and rhythm - GI/Abdominal GI/Abdominal exam: Present: normal bowel sounds, soft. Absent: tenderness, rebound - Extremities Exam Extremities exam: Present: normal inspection - Back Exam Back exam: Present: normal inspection - Neurological Exam Neurological exam: Present: alert, oriented X3 - Psychiatric Psychiatric exam: Present: normal affect, normal mood - Skin Skin exam: Present: warm, intact Results - Labs CBC & BMP: 11/11/16 04:24 11/10/16 03:54
[2016-11-11] MEDS: CHOLECALCIFEROL 1,000 UNIT TABLET PO SCH (09:22)
[2016-11-11] MEDS: predniSONE 20 MG TABLET PO SCH (09:22)
[2016-11-11] MEDS: MONTELUKAST 10 MG TABLET PO SCH (09:22)
[2016-11-11] MEDS: THEOPHYLLINE ER 300 MG TABLET PO SCH ×2 (09:22→16:57)
[2016-11-11] MEDS: PANTOPRAZOLE 40 MG TABLET PO SCH (09:22)
[2016-11-11] MEDS: LEVOFLOXACIN 750 MG TABLET PO SCH (09:23)
--- NOTE | 2016-11-11 11:08 | Hospitalist Progress Note ---
Assessment and Plan (1) Acute exacerbation of chronic obstructive airways disease Status: Acute Assessment and plan: levaquin and prednisone duonebs Current Visit: Yes (2) Tobacco abuse Status: Acute Current Visit: Yes (3) Respiratory distress Status: Acute Current Visit: Yes Hospitalist: Subjective Interval history: Patient reports that she feels better. Antibiotics and steroids switched to po. Leukocytosis is improving. Possible discharge tomorrow. Exam - Constitutional Vitals: Period Temp Pulse Resp BP Sys/Donaldson Pulse Ox Last 24 Hr 96.4 F-99.1 F 58-97 16-20 105-138/55-71 93-99 General appearance: normal weight - Head Head exam: Present: normocephalic, atraumatic - Eye Eye exam: Present: EOMI Pupils: Present: IRENE - ENT ENT exam: Present: normal exam - Neck Neck exam: Present: normal inspection - Respiratory Respiratory exam: Present: clear to auscultation bilaterally. Absent: rhonchi, wheezes - Cardiovascular Cardiovascular exam: Present: regular rate and rhythm - GI/Abdominal GI/Abdominal exam: Present: normal bowel sounds, soft. Absent: tenderness, rebound - Extremities Exam Extremities exam: Present: normal inspection - Back Exam Back exam: Present: normal inspection - Neurological Exam Neurological exam: Present: alert, oriented X3 - Psychiatric Psychiatric exam: Present: normal affect, normal mood - Skin Skin exam: Present: warm, intact Results - Labs CBC & BMP: 11/11/16 04:24 11/10/16 03:54
--- NOTE | 2016-11-11 13:17 | Pulmonology Progress Note ---
Pulmonary - PN: Subj Interval history: Patient seen and examined today. Doing much better. She notes shes a little more tired because she thinks she "overdid it" yesterday, but breathing is better Exam (Progress Note) - Constitutional Vitals: Period Temp Pulse Resp BP Sys/Donaldson Pulse Ox Last 24 Hr 97.3 F-99.1 F 58-96 16-19 105-138/55-71 93-99 General appearance: normal weight, no acute distress - Head Head exam: Present: normal inspection - Neck Neck exam: Present: normal inspection - Respiratory Respiratory exam: Present: clear to auscultation bilaterally. Absent: wheezes - Cardiovascular Cardiovascular exam: Present: regular rate and rhythm - GI/Abdominal GI/Abdominal exam: Present: normal bowel sounds - Neurological Exam Neurological exam: Present: alert, oriented X3 Results - Labs CBC & BMP: 11/11/16 04:24 11/10/16 03:54 Lab Results: I have reviewed the past 24 hour labs Assessment and Plan (1) Acute exacerbation of chronic obstructive airways disease Status: Acute Assessment and plan: Patient continues to improve. She is tolerating PO. Luekocytosis improving. No further recs at this time. Please call if there are any questions Current Visit: Yes
[2016-11-11] MEDS: ACETAMINOPHEN 325 MG TABLET PO PRN (19:42)
[2016-11-12] MEDS: ALBUTEROL/IPRATROPIUM 3 ML NEB RESP TX SCH ×2 (01:18→07:17)
[2016-11-12] MEDS: LEVOTHYROXINE 100 MCG TABLET PO SCH (06:24)
[2016-11-12 06:35] LABS: Basophils % 0.3 % (0.0-0.8); Eosinophils % 0.1 % (0.00-10.9); Hematocrit 34.8 VOL% (35.7-47.0); Hemoglobin 11.6 GM/DL (12.0-16.0); Immature Granulocytes % 4.9 %; Immature Granulocytes Absolute 0.62 #; Lymphocytes # 1.6 10*3/uL (1.4-4.0); Lymphocytes % 12.5 % (21.3-54.2); Mean Corpuscular HGB Conc 33.3 GM/DL (32-36); Mean Corpuscular Hemoglobin 30 PG (27-34); Mean Corpuscular Volume 90.9 FL (87-102); Mean Platelet Volume 11.7 FL (9.6-12.0); Monocytes # 0.8 10*3/uL (0.11-0.8); Monocytes % 6.6 % (1.7-12.7); NRBC # 0.03 10*3/uL; Neutrophils # 9.6 10*3/uL (1.4-7.4); Neutrophils % 75.6 % (38.7-73.9); Platelet Count 206 T/CUMM (130-400); Red Blood Count 3.83 MC/CUMM (3.8-5.5); Red Cell Distribution Width 14.3 % (9.3-17.3); White Blood Count 12.6 T/CUMM (4-12)
[2016-11-12 07:46] LABS: Band Neutrophils 1 % (0-10); Hypochromasia 1+; Lymphocytes 16 % (20-55); Microcytosis Slight; Ovalocytes Few; Platelet Estimate Adequate; Segmented Neutrophils 79 % (50-85); Total Cells Counted 100
[2016-11-12] MEDS: predniSONE 20 MG TABLET PO SCH (09:23)
[2016-11-12] MEDS: MONTELUKAST 10 MG TABLET PO SCH (09:23)
[2016-11-12] MEDS: THEOPHYLLINE ER 300 MG TABLET PO SCH (09:23)
[2016-11-12] MEDS: LEVOFLOXACIN 750 MG TABLET PO SCH (09:23)
[2016-11-12] MEDS: PANTOPRAZOLE 40 MG TABLET PO SCH (09:23)
[2016-11-12] MEDS: CHOLECALCIFEROL 1,000 UNIT TABLET PO SCH (09:23)
[2016-11-12] MEDS: INSULIN REGULAR 100 UNIT/ML SUBCUT SCH ×2 (09:23→12:34)
--- NOTE | 2016-11-12 10:07 | Discharge Summary ---
<Juliette Grajedada - Last Filed: 11/12/16 10:33> Hospital Course - Hospital Course Hospital Course: This is a 51 year old female that presented to the ED at [facility] on 11/07 for evaluation of shortness of breath. The patient has a medical history of hypothyroidism and nicotine addition. The patient reported an onset of the above symptoms one week prior to presentation. The patient reported generalized weakness, insomnia, and diarrhea. In addition, the patient reported a productive cough clear in color and foamy in consistency. The patient reported that she is a current smoker and that she smokes "1 pack a day ". Chest radiograph was obtained which revealed chronic interstitial disease including sarcoid could be considered, the pattern of interstitial stranding in the perihilar region suggests little progression from comparison and no acute superimposed process was clearly demonstrated. The patient was subsequently admitted to the hospitalist service for continuation of care.Empiric antibiotics , inhaled bronchodilators, and corticosteriods were initiated and a pulmonary consult was requested. The patient's symptoms gradually improved. Her condition is stable and she has not experienced and significant overnight events. Today, we feel that she is appropriate for discharge home to follow-up with primary care physician and pulmonary as directed. Spoke with patient in great length regarding smoking cessation. Patient was informed of the extensive pulmonary involvement at the present time and possible deterioration if nicotine use persists. The patient verbalizes the need to refrain; however I am not sure that she will. - Time spent with patient Time with patient DS: Greater than 30 minutes Time spent discussing smoking cessation with patient: more than 10 minutes Specialty Discharge - Follow Up or Referrals Follow up with: Fran Camargo MD [Physician] - 1 Month Discharge Plan - Discharge Data Disposition: Disch To Home/Self Care - Discharge Medications New Theophylline ER Tab 300 mg PO BID W/MEALS #60 tablet predniSONE TAB [PredniSONE] 60 mg PO DAILY #25 tablet Albuterol Inhaler [Proventil Inhaler] 2 puff INH Q4H PRN #1 inhaler PRN Reason: Shortness Of Breath/Wheezing Montelukast Tab [Singulair Tab] 10 mg PO DAILY #30 tablet Continue Levothyroxine Tab [Synthroid Tab] 100 mcg PO DAILY@0700 - Follow Up or Referral - Forms/Instructions Exam - Constitutional Vitals: Period Temp Pulse Resp BP Sys/Donaldson Pulse Ox Last 24 Hr 96.9 F-99.3 F 60-98 16-20 116-146/60-74 91-99 Discharge Results Procedures and tests throughout hospitalization: Pending Orders 11/07/16 17:11 Blood Culture Stat Labs on day of discharge: Labs from last 24 hours 11/12/16 11/12/16 11/12/16 08:00 06:00 05:59 WBC 12.6 H RBC 3.83 Hgb 11.6 L Hct 34.8 L MCV 90.9 MCH 30 MCHC 33.3 RDW 14.3 Plt Count 206 MPV 11.7 Neut % (Auto) 75.6 H Lymph % (Auto) 12.5 L Isabela % (Auto) 6.6 Eos % (Auto) 0.1 Baso % (Auto) 0.3 Neut # (Auto) 9.6 H Lymph # (Auto) 1.6 Isabela # (Auto) 0.8 Eos # (Auto) 0.0 Baso # (Auto) 0.0 Total Counted 100 Immature Gran % 4.9 Nucleated RBC % 0.2 Immature Gran # 0.62 Segmented Neutrophils 79 Band Neutrophils 1 Lymphocytes 16 L Monocytes 4 Nucleated RBCs # 0.03 Platelet Estimate Adequate Hypochromasia 1+ Microcytosis Slight Ovalocytes Few POC Glucose 84 Theophylline 9.0 L 11/11/16 16:12 WBC RBC Hgb Hct MCV MCH MCHC RDW Plt Count MPV Neut % (Auto) Lymph % (Auto) Isabela % (Auto) Eos % (Auto) Baso % (Auto) Neut # (Auto) Lymph # (Auto) Isabela # (Auto) Eos # (Auto) Baso # (Auto) Total Counted Immature Gran % Nucleated RBC % Immature Gran # Segmented Neutrophils Band Neutrophils Lymphocytes Monocytes Nucleated RBCs # Platelet Estimate Hypochromasia Microcytosis Ovalocytes POC Glucose 211 H Theophylline Preliminary micro results at discharge 11/07/16 17:11 Blood Culture - Preliminary Blood No growth at 3 days 11/07/16 17:11 Blood Culture - Preliminary Blood No growth at 3 days DS: Provider Date of admission: 11/07/16 21:17 Primary care physician: . No PCP Attending physician on admission: Lenard Andrade MD Consults: 11/07/16 21:17 Consult to Physician [CONS] Routine Comment: findings on cxr Consulting Provider: Fran Camargo Consulting Provider Notified: Yes When should Consulting Provider be notified: Now Consult to Specialist Group: Pulmonology When should Consulting Provider be notified: Now Person Notified: BILL Date Notified: 11/08/16 Time Notified: 09:14 Discharging clinician: Sergio Grajeda CNP <Carla Eli - Last Filed: 11/12/16 10:48> Hospital Course - Time spent with patient Time with patient DS: Less than 30 minutes Diagnosis - Discharge Diagnosis (1) Acute exacerbation of chronic obstructive airways disease Status: Resolved (2) Tobacco abuse Status: Chronic (3) Respiratory distress Status: Resolved Discharge Plan - Discharge Data Condition at Discharge: Stable Discharge Diet: advance to your usual diet Activity: increase activity as tolerated Hygiene: no restrictions Weight Bearing at Discharge: weight bear as tolerated Driving: no restrictions Contact your physician if you experience:: fever over 101, Shortness of breath Exam - Constitutional General appearance: normal weight - Head Head exam: Present: normocephalic, atraumatic - Eye Eye exam: Present: EOMI Pupils: Present: IRENE - ENT ENT exam: Present: normal exam - Neck Neck exam: Present: normal inspection - Respiratory Respiratory exam: Present: clear to auscultation bilaterally. Absent: wheezes - Cardiovascular Cardiovascular exam: Present: regular rate and rhythm - GI/Abdominal GI/Abdominal exam: Present: normal bowel sounds, soft. Absent: tenderness, rebound - Extremities Exam Extremities exam: Present: normal inspection - Back Exam Back exam: Present: normal inspection - Neurological Exam Neurological exam: Present: alert, oriented X3 - Psychiatric Psychiatric exam: Present: normal affect, normal mood - Skin Skin exam: Present: warm, intact
[2016-11-12 13:12] VITALS: BP 143/82
[2016-11-13] MEDS ORDERED: predniSONE 20 MG TABLET PO SCH (09:00)
== END 2016-11-12 13:29 | disposition home or self-care (01) | DRG 190 ==
LOC: N.ED 15:27 → N.EDINP 21:17 → SUATTDRO 21:17 → N.4E 21:59
PROVIDERS: ADMIT Internal Medicine; ATTEND Internal Medicine

== ENCOUNTER 2019-06-21 22:38 | Inpatient (IN) ==
[2019-06-21] MEDS ORDERED: ALBUTEROL/IPRATROPIUM 3 ML NEB RESP TX STA ×3 (23:32)
[2019-06-21] MEDS ORDERED: methylPREDNISolone SOD SUC 125 MG/2 ML VIAL IV STA (23:32)
[2019-06-21] MEDS ORDERED: AZITHROMYCIN INJ 500 MG in SODIUM CHLORIDE 0.9% 250 ML IV STA (23:33)
[2019-06-22 00:36] LABS: Basophils % 0.1 % (0.0-0.8); Eosinophils # 0.1 10*3/uL (0.0-0.87); Eosinophils % 0.8 % (0.00-10.9); Hematocrit 37.8 VOL% (35.7-47.0); Hemoglobin 12.3 GM/DL (12.0-16.0); Immature Granulocytes % 0.5 %; Immature Granulocytes Absolute 0.07 #; Lymphocytes # 2.1 10*3/uL (1.4-4.0); Mean Corpuscular HGB Conc 32.5 GM/DL (32-36); Mean Platelet Volume 10.6 FL (9.6-12.0); Monocytes % 5.7 % (1.7-12.7); Neutrophils % 78.9 % (38.7-73.9); Platelet Count 301 T/CUMM (130-400); Red Blood Count 4.11 MC/CUMM (3.8-5.5); White Blood Count 14.7 T/CUMM (4-12)
[2019-06-22 00:57] LABS: Apearance,Urine CLEAR (Clear); Bacteria,Urine Occasional /HPF (Few); Bilirubin,Urine Negative (Negative); Blood, Urine Negative (Negative); Glucose,Urine (UA) Negative (Negative); Ketones,Urine Negative (Negative); Mucus,Urine Occasional /LPF (Occasional); Nitrite,Urine Negative (Negative); Protein,Urine Negative; RBC,Urine 9 /HPF (0-4); Squamous Epithelial Cell,Urine Occasional /HPF (0-10); Urine Color Yellow (Yellow); Urine Urobilinogen < 2.0 EU/DL (0.2-1.0); WBC,Urine 2 /HPF (0-6)
[2019-06-22 00:57] LABS: Alanine Aminotransferase 13 U/L (13-56); Albumin 2.9 G/DL (3.4-5.0); Alkaline Phosphatase 113 U/L (45-117); Aspartate Amino Transferase 15 U/L (0-37); Bilirubin,Total < 0.39 MG/DL (0.2-1.0); Blood Urea Nitrogen 11 MG/DL (7-18); Calcium 8.3 MG/DL (8.5-10.1); Estimated Glom Filtration Rate 58 ML/MIN; Glucose 94 MG/DL (74-106); Osmolality,Calculated 284.8 MOS/KG (273-304); Total Protein 7.2 G/DL (6.4-8.3)
[2019-06-22] MEDS ORDERED: ACETAMINOPHEN 325 MG TABLET PO PRN (02:21)
[2019-06-22] MEDS ORDERED: ONDANSETRON 4 MG/2 ML VIAL IV PRN (02:21)
[2019-06-22] MEDS: ALBUTEROL/IPRATROPIUM 3 ML NEB RESP TX SCH ×5 (02:40→20:26)
[2019-06-22 03:42] LABS: ABG Base Excess 2.7 MMOL/L (-2.5-2.5); ABG HCO3 26.7 MMOL/L (20-26); ABG Oxygen Saturation 93.8 % (95-100); ABG PCO2 45.6 MM HG (35-48); ABG PH 7.398 (7.35-7.45); ABG PO2 72.7 MM HG (80-95); ABG TCO2 24.9 MMOL/L (23-27); Allen Test Positive
[2019-06-22] MEDS: SODIUM CHLORIDE 0.45% 1,000 ML IV SCH ×2 (03:58→16:50)
[2019-06-22 05:16] LABS: Basophils % 0.2 % (0.0-0.8); Hematocrit 37.3 VOL% (35.7-47.0); Hemoglobin 11.8 GM/DL (12.0-16.0); Immature Granulocytes % 0.9 %; Lymphocytes # 0.5 10*3/uL (1.4-4.0); Lymphocytes % 4.6 % (21.3-54.2); Mean Corpuscular HGB Conc 31.6 GM/DL (32-36); Mean Corpuscular Volume 92.1 FL (87-102); Mean Platelet Volume 11.2 FL (9.6-12.0); Monocytes % 1.4 % (1.7-12.7); Neutrophils % 92.9 % (38.7-73.9); Platelet Count 277 T/CUMM (130-400); Red Blood Count 4.05 MC/CUMM (3.8-5.5); Red Cell Distribution Width 12.9 % (9.3-17.3); White Blood Count 11.7 T/CUMM (4-12)
[2019-06-22 05:37] LABS: Hypochromasia 1+; Lymphocytes 4 % (20-55); Ovalocytes Slight; Platelet Estimate Adequate; Segmented Neutrophils 95 % (50-85); Total Cells Counted 100
[2019-06-22 05:44] LABS: Calcium 8.1 MG/DL (8.5-10.1); Osmolality,Calculated 287.8 MOS/KG (273-304)
[2019-06-22] MEDS: LEVOTHYROXINE 100 MCG TABLET PO SCH (06:08)
[2019-06-22] MEDS ORDERED: methylPREDNISolone SOD SUC 40 MG/1 ML VIAL IV SCH (08:00)
[2019-06-22] MEDS ORDERED: POTASSIUM CHLORIDE 20 MEQ TABLET PO ONE (09:00)
[2019-06-22] MEDS: AZITHROMYCIN 250 MG TABLET PO SCH (09:32)
[2019-06-22] MEDS: methylPREDNISolone SOD SUC 40 MG/1 ML VIAL IV SCH ×2 (09:33→21:03)
[2019-06-22] MEDS: PANTOPRAZOLE 40 MG TABLET PO SCH (09:33)
[2019-06-22] MEDS: ENOXAPARIN 40 MG/0.4 ML SYRINGE SUBCUT SCH (09:33)
[2019-06-23] MEDS: ALBUTEROL/IPRATROPIUM 3 ML NEB RESP TX SCH ×3 (00:34→07:56)
[2019-06-23 05:49] LABS: Calcium 8.2 MG/DL (8.5-10.1); Osmolality,Calculated 286.1 MOS/KG (273-304)
[2019-06-23] MEDS: LEVOTHYROXINE 100 MCG TABLET PO SCH (05:54)
[2019-06-23] MEDS: SODIUM CHLORIDE 0.45% 1,000 ML IV SCH (06:35)
[2019-06-23 07:29] VITALS: BP 120/71
[2019-06-23] MEDS: PANTOPRAZOLE 40 MG TABLET PO SCH (08:57)
[2019-06-23] MEDS: AZITHROMYCIN 250 MG TABLET PO SCH (08:57)
[2019-06-23] MEDS: methylPREDNISolone SOD SUC 40 MG/1 ML VIAL IV SCH (08:57)
[2019-06-23] MEDS: ENOXAPARIN 40 MG/0.4 ML SYRINGE SUBCUT SCH (08:58)
== END 2019-06-23 10:59 | disposition home or self-care (01) | DRG 192 ==
LOC: N.ED 22:38 → N.EDINP 06-22 03:16 → N.5E 06-22 03:19
PROVIDERS: ADMIT Internal Medicine Geriatric Medicine; ATTEND Internal Medicine Geriatric Medicine